=== PATIENT | male | born 1985 | race Caucasian/White ===

== ENCOUNTER 2023-02-16 13:59 | Emergency (ER) | payer BC, OTHER ==
[~2023-02-16] VITALS: Ht 180.3 cm; Wt 95.5 kg
[2023-02-16 16:47] VITALS: BP 138/98
[2023-02-16] MEDS ORDERED: IBUP-1455 PO (17:32)
== END 2023-02-16 17:52 | disposition home or self-care (01) ==
LOC: ER 13:59
DX: S46.912A Strain of unspecified muscle, fascia and tendon at shoulder and upper arm level, left arm, initial encounter (principal); S60.221A Contusion of right hand, initial encounter; M24.811 Other specific joint derangements of right shoulder, not elsewhere classified; X50.1XXA Overexertion from prolonged static or awkward postures, initial encounter; Y93.89 Activity, other specified; Y92.89 Other specified places as the place of occurrence of the external cause; Y99.8 Other external cause status
CPT/HCPCS: 73030; 73130